=== PATIENT | male | born 1970 | race African-American/Black ===

== ENCOUNTER 2021-09-06 19:47 | Emergency (ER) | payer OTHER, SELFPAY ==
[2021-09-06 20:29] VITALS: BP 146/95; PULSE 87; RESP 18; TEMP 36.8; O2SAT 100
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
== END 2021-09-06 21:01 | disposition home or self-care (01) ==
PROVIDERS: Emergency Provider Emergency Medicine
DX: S29.012A Strain of muscle and tendon of back wall of thorax, initial encounter (principal); V43.52XA Car driver injured in collision with other type car in traffic accident, initial encounter
CPT/HCPCS: 99282